=== PATIENT | female | born 1955 | race Caucasian/White ===

== ENCOUNTER 2018-05-24 14:18 | Emergency (ER) | payer OTHER, SELFPAY ==
[2018-05-24 14:20] VITALS: BP 101/62; PULSE 85; RESP 16; TEMP 37.7; O2SAT 97; BMI 19.8
--- NOTE | 2018-05-24 14:37 | RAD_ITS ---
STUDY: X-RAY - LEFT KNEE REASON FOR EXAM: Female, 63 years old. Left knee pain following injury. TECHNIQUE: 4 view(s) of the knee. COMPARISON: None. FINDINGS: Normal visualized distal femur. Normal visualized proximal tibia and fibula. Normal proximal tibiofibular articulation. Normal medial femorotibial compartment. Normal lateral femorotibial compartment. Normal patellofemoral articulation. Tiny joint effusion. RAD/Knee 4 or More Views IMPRESSION: Tiny joint effusion. Electronically Signed: Lamine Rivas, at 15:38 EDT , Service support ,
[2018-05-24] MEDS: fentaNYL 100 MCG/2 ML Ampul 50 MCG IM (15:00)
--- NOTE | 2018-05-24 16:00 | ED.VISSUMM ---
- ER Visit Summary Date of Service: 05/24/18 Chief Complaint: Left knee pain History of Present Illness: The patient is a 63 F who goes to the [facility] She reports just prior to come the emergency department she is shut the door of her van on the her left knee. States she is not been able to bear weight since that time. She is a sharp pain that is 10 out of 10 when she bears weight and she is pain-free at rest. She denies any paresthesias distally. Physical Examination: Vitals: Stable. Afebrile. General: Well-nourished and well-developed. Head: Normocephalic atraumatic. Neck: Supple, no lymphadenopathy. No JVD. Nontender. Cardiovascular: Regular rate and rhythm. No murmurs. Respiratory: No respiratory distress. Clear to auscultation bilaterally. Abdominal: Soft, nontender, nondistended, normal bowel sounds. No guarding, rebound, or peritoneal signs. Back: Nontender. Left knee: Moderate tenderness palpation over the medial side of her knee and mild diffuse tenderness palpation over her knee otherwise. There is a small joint effusion. She is able to extend her knee and lift her leg off the bed. Her extensor mechanism is intact. She has pain, but no ligamentous instability with anterior/posterior drawer or medial/lateral stress. She is neurovascular intact distal to this. Skin: Normal color, no rash. Neurologic: Alert and oriented ?3. Cranial nerves II through XII are intact. Normal strength and sensation. Psych: Normal affect. Test Results: X-ray shows a small joint effusion. No fracture. Emergency Department Course and Treatment: Patient was initially treated with fentanyl IM and then was given [place] p.o. Treatment Plan: Patient will be discharged with crutches and [place]. Instructed to follow-up with Dr. Mendenhall in 1 week if not improving. Return to the emergency department for any worsening symptoms. Disposition: To home in improved and stable condition. Impression: 1. Left knee pain, acute. This note was generated with [employer] dictation software. It may contain incorrect words, spelling, and punctuation that were not noted in review of the chart prior to signing ED Disposition - Plan for ED Patient: Instructions: ED Knee Pain [facility] Prescriptions: Hydrocodone Bitart/Apap 5-325 [Longford 5MG-325MG] 1 tablet PO Q6H PRN PRN 5 Days #20 tablet PRN Reason: Pain Referrals: Ant Mendenhall DO [STAFF PHYSICIAN] - 1 Week
[2018-05-24] MEDS: HYDROcodone Bitartrate/Apap 5/325 Tablet PO (17:36)
[2018-05-24 18:00] VITALS: BP 114/78; PULSE 89; RESP 16; O2SAT 99
== END 2018-05-24 18:00 | disposition home or self-care (01) ==
LOC: ED 14:47
PROVIDERS: Emergency Provider Emergency Medicine
DX: M25.562 Pain in left knee (principal); J44.9 Chronic obstructive pulmonary disease, unspecified; Z85.118 Personal history of other malignant neoplasm of bronchus and lung; Z72.0 Tobacco use; Z79.51 Long term (current) use of inhaled steroids
CPT/HCPCS: 73564; 96372; 99283